=== PATIENT | female | born 1990 | race African-American/Black ===

== ENCOUNTER 2017-06-03 12:53 | Emergency (ER) | payer OTHER ==
[~2017-06-03] VITALS: Ht 167.6 cm; Wt 82.5 kg
[2017-06-03 13:06] VITALS: TEMP 37.2
[2017-06-03] MEDS ORDERED: ALBUTEROL 0.083% NEBU SOLN 3 ML VIAL INH STA ×2 (13:50→14:49)
--- NOTE | 2017-06-03 13:56 | EMERGENCY ROOM VISIT NOTE ---
History Report prepared by Thomas[place]ag[place]ia: Michele Payne Under the Supervision of: Dr. Brian Linares M.D. First contact with patient: 13:29 Chief Complaint: CONGESTION Stated Complaint: SEVERE CONGESTION AND COUGH; LOSS OF VOICE Nursing Triage Summary: c/o cold and productive cough with copious amounts of green mucus. skin pwd resp even unlabored. hoarse voice noted. denies nvd or fever. reports headache related to "sinuses". History of Present Illness The patient is a 27 year old female who presents to the Emergency Room with complaints of a persistent cough that began three days ago. She rates her discomfort as a 5/10 in severity. The patient states that her cough has been productive with green mucous. She reports her cough has been accompanied by congestion, a sore throat, and a headache. The patient denies fever, chest pain , and taking medications. She states she is unsure if she is since she is supposed to be starting her menstrual period soon. Source of History: patient Onset: three days ago Position: other (global) Symptom Intensity: 5/10 Quality: other (productive with green mucous) Timing: other (persistent) Associated Symptoms: + sorethroat, + cough, No fevers, No chest pain Review of Systems See HPI for pertinent positives & negatives. A total of 10 systems reviewed and were otherwise negative. Past Medical & Surgical Surgical Problems: (1) No pertinent past surgical history Family History Patient reports no known family medical history. Social History Smoking Status: Never Smoker Marital Status: single Housing Status: lives with family Occupation Status: employed Current/Historical Medications Scheduled Prednisone (Prednisone Tab), 0 PO DAILY Allergies Coded Allergies: No Known Allergies (Unverified , 06/03/17) Physical Exam Vital Signs Date Time Temp Pulse Resp B/P (MAP) Pulse Ox O2 Delivery O2 Flow Rate FiO2 06/03/17 16:07 113 17 114/68 99 06/03/17 15:59 113 17 114/68 99 Room Air 06/03/17 15:20 104/68 06/03/17 14:43 75 18 99 Room Air 06/03/17 14:17 98 Room Air 06/03/17 14:17 Room Air 06/03/17 13:28 98 16 125/60 98 Room Air 06/03/17 13:28 Room Air 06/03/17 13:06 37.2 76 18 99 Room Air Physical Exam GENERAL: Awake, alert, well-appearing, in no acute distress HENT: Normocephalic, atraumatic. Oropharynx unremarkable. EYES: Normal conjunctiva. Sclera non-icteric. NECK: Supple. No nuchal rigidity. FROM. No JVD. No stridor. RESPIRATORY: Expiratory wheezes at the bases. CARDIAC: Regular rate, normal rhythm. Extremities warm and well perfused. Pulses equal. ABDOMEN: Soft, non-distended. No tenderness to palpation. No rebound or guarding. No masses. RECTAL: Deferred. MUSCULOSKELETAL: Chest examination reveals no tenderness. The back is symmetrical on inspection without obvious abnormality. There is no CVA tenderness to palpation. No joint edema. LOWER EXTREMITIES: Calves are equal size bilaterally and non-tender. No edema. No discoloration. NEURO: Normal sensorium. No sensory or motor deficits noted. SKIN: No rash or jaundice noted. Medical Decision & Procedures ER Provider Diagnostic Interpretation: X-ray results as stated below per interpretation by me and the radiologist: CHEST ONE VIEW PORTABLE CLINICAL HISTORY: 27 years-old Female presenting with Pt c/o wheezing. TECHNIQUE: PA and lateral views of the chest were obtained. COMPARISON: 02/15/2016. FINDINGS: Cardiomediastinal silhouette normal. Lungs and pleural spaces clear. Osseous structures normal. Upper abdomen normal. IMPRESSION: 1. No acute cardiopulmonary disease. Electronically signed by: Grey Moreno M.D. 06/03/2017 2:48 PM Dictated Date/Time: 06/03/2017 2:48 PM Laboratory Results 06/03/17 14:00 Red Blood Count 4.22, Mean Corpuscular Volume 80.6, Mean Corpuscular Hemoglobin 26.3, Mean Corpuscular Hemoglobin Concent 32.6, Mean Platelet Volume 9.4, Neutrophils (%) (Auto) 72.6, Lymphocytes (%) (Auto) 14.9, Monocytes (%) (Auto) 10.7, Eosinophils (%) (Auto) 1.0, Basophils (%) (Auto) 0.5, Neutrophils # (Auto ) 7.63, Lymphocytes # (Auto) 1.57, Monocytes # (Auto) 1.13, Eosinophils # (Auto ) 0.11, Basophils # (Auto) 0.05 06/03/17 14:00 Test 06/03/17 00:00 06/03/17 14:00 Urine Color DK YELLOW Urine Appearance CLEAR (CLEAR) Urine pH 6.0 (4.5-7.5) Urine Specific Parker 1.030 (1.000-1.030) Urine Protein NEG (NEG) Urine Glucose (UA) NEG (NEG) Urine Ketones NEG (NEG) Urine Occult Blood 3+ (NEG) Urine Nitrite NEG (NEG) Urine Bilirubin NEG (NEG) Urine Urobilinogen NEG (NEG) Urine Leukocyte Esterase NEG (NEG) Urine WBC (Auto) 1-5 /hpf (0-5) Urine RBC (Auto) 0-4 /hpf (0-4) Urine Hyaline Casts (Auto) 1-5 /lpf (0-5) Urine Epithelial Cells (Auto) >30 /lpf (0-5) Urine Bacteria (Auto) NEG (NEG) White Blood Count 10.52 K/uL (4.8-10.8) Red Blood Count 4.22 M/uL (4.2-5.4) Hemoglobin 11.1 g/dL (12.0-16.0) Hematocrit 34.0 % (37-47) Mean Corpuscular Volume 80.6 fL (80-100) Mean Corpuscular Hemoglobin 26.3 pg (25-34) Mean Corpuscular Hemoglobin Concent 32.6 g/dl (32-36) Platelet Count 214 K/uL (130-400) Mean Platelet Volume 9.4 fL (7.4-10.4) Neutrophils (%) (Auto) 72.6 % Lymphocytes (%) (Auto) 14.9 % Monocytes (%) (Auto) 10.7 % Eosinophils (%) (Auto) 1.0 % Basophils (%) (Auto) 0.5 % Neutrophils # (Auto) 7.63 K/uL (1.4-6.5) Lymphocytes # (Auto) 1.57 K/uL (1.2-3.4) Monocytes # (Auto) 1.13 K/uL (0.11-0.59) Eosinophils # (Auto) 0.11 K/uL (0-0.5) Basophils # (Auto) 0.05 K/uL (0-0.2) RDW Standard Deviation 45.2 fL (36.4-46.3) RDW Coefficient of Variation 15.4 % (11.5-14.5) Immature Granulocyte % (Auto) 0.3 % Immature Granulocyte # (Auto) 0.03 K/uL (0.00-0.02) Anion Gap 4.0 mmol/L (3-11) Est Creatinine Clear Calc Drug Dose 107.6 ml/min Estimated GFR () 108.8 Estimated GFR (Non- 93.9 BUN/Creatinine Ratio 10.3 (10-20) Calcium Level 8.7 mg/dl (8.5-10.1) Total Bilirubin 0.5 mg/dl (0.2-1) Aspartate Amino Transf (AST/SGOT) 18 U/L (15-37) Alanine Aminotransferase (ALT/SGPT) 20 U/L (12-78) Alkaline Phosphatase 89 U/L (45-117) Total Protein 7.5 gm/dl (6.4-8.2) Albumin 3.3 gm/dl (3.4-5.0) Globulin 4.2 gm/dl (2.5-4.0) Albumin/Globulin Ratio 0.8 (0.9-2) Human Chorionic Gonadotropin, Qual NEG (NEG) Labs reviewed by ED physician. Medications Administered Medications (Trade) Dose Ordered Sig/Willam Route Start Time Stop Time Status Last Admin Dose Admin Albuterol (Ventolin Hfa Inhaler) 2 puffs NOW ONCE INH 06/03/17 14:00 06/03/17 14:01 DC 06/03/17 15:15 2 PUFFS Albuterol Sulfate (Ventolin 0.083% 2.5MG/3ML Neb) 2.5 mg NOW STAT INH 06/03/17 13:50 06/03/17 13:53 DC 06/03/17 15:15 2.5 MG Albuterol Sulfate (Ventolin 0.083% 2.5MG/3ML Neb) 2.5 mg NOW STAT INH 06/03/17 14:49 06/03/17 14:51 DC 06/03/17 15:27 2.5 MG Ketorolac Tromethamine (Toradol Inj) 30 mg NOW STAT IV 06/03/17 14:49 06/03/17 14:51 DC 06/03/17 15:15 30 MG Methylprednisolone Sodium Succinate (Solu-Medrol IV) 60 mg NOW STAT IV 06/03/17 15:48 06/03/17 15:49 DC 06/03/17 16:03 60 MG ECG Per My Interpretation Indication: SOB/dyspnea Rate (beats per minute): 71 Rhythm: normal sinus Findings: other (No ST elevation or depression) ED Course 1344: Past medical records reviewed. The patient was evaluated in room B10. A complete history and physical examination was performed. 1350: Ordered Albuterol Sulfate 2.5 mg INH. 1400: Ordered Albuterol 2 puffs INH. 1449: Ordered Toradol Injection 30 mg IV, Albuterol Sulfate 2.5 mg INH. 1548: Ordered Solu-Medrol 60 mg IV. 1550: Upon reexamination the patient is doing well. I discussed results and treatment plan with the patient. She verbalizes agreement and understanding. The patient is ready for discharge. Medical Decision Prior records/ancillary studies reviewed. Triage Nursing notes reviewed. The patient's history was concerning for respiratory difficulties. Differential diagnosis: Etiologies such as infections, reactive airway disease, pneumonia, pneumothorax , COPD, CHF, cardiac ischemia, pulmonary embolism, musculoskeletal, gastrointestinal, as well as others were entertained. This is a 27-year-old female who presents emergency department complaining of sore throat and wheezing. The patient has no stridor on examination. She was given a breathing treatment here in the emergency department and started on steroids. Repeat examination revealed much improvement the patient's symptoms. I do feel that the patient is well enough to be discharged home for follow-up with primary care physician. Patient is in agreement with the treatment plan. Medication Reconcilliation Current Medication List: was personally reviewed by me Blood Pressure Screening Patient's blood pressure: Normal blood pressure Impression Primary Impression: Bronchitis Scribe Attestation The scribe's documentation has been prepared under my direction and personally reviewed by me in its entirety. I confirm that the note above accurately reflects all work, treatment, procedures, and medical decision making performed by me. Departure Information Dispostion Home / Self-Care Prescriptions Prednisone (Prednisone Tab) 20 Mg Tab 0 PO DAILY, #7 TAB 2 TABS DAILY FOR 2 DAYS, THEN 1 TAB DAILY FOR 2 DAYS, THEN 1/2 TAB DAILY FOR 2 DAYS. Prov: Brian Linares MD 06/03/17 Referrals No Doctor, Assigned (PCP) Forms HOME CARE DOCUMENTATION FORM, IMPORTANT VISIT INFORMATION Patient Instructions Bronchitis Acute Dc, My [facility] Additional Instructions Use inhaler twice every 6 hours You have been examined and treated today on an emergency basis only. This is not a substitute for, or an effort to provide, complete comprehensive medical care. It is impossible to recognize and treat all injuries or illnesses in a single emergency department visit. It is therefore important that you follow up closely with your PCP. Call as soon as possible for an appointment. Thank you for your time and consideration. I look forward to speaking with you again soon. Please don't hesitate to call us if you have any questions.
[2017-06-03] MEDS ORDERED: ALBUTEROL HFA 8 GM INHALER INH ONE (14:00)
[2017-06-03 14:15] LABS: BASO % 0.5 %; BASO ABS # 0.05 K/uL (0-0.2); EOS ABS # 0.11 K/uL (0-0.5); HEMOGLOBIN 11.1 g/dL (12.0-16.0); IG# 0.03 K/uL (0.00-0.02); LYMPH % 14.9 %; LYMPH ABS # 1.57 K/uL (1.2-3.4); MEAN CELL VOLUME 80.6 fL (80-100); MEAN CORPUSCULAR HEMOGLOBIN 26.3 pg (25-34); MEAN CORPUSCULAR HGB CONC 32.6 g/dl (32-36); MEAN PLATELET VOLUME 9.4 fL (7.4-10.4); MONO % 10.7 %; MONO ABS # 1.13 K/uL (0.11-0.59); NEUT % 72.6 %; NEUT ABS # 7.63 K/uL (1.4-6.5); PLATELET COUNT 214 K/uL (130-400); RED CELL DISTRIBUTION WIDTH CV 15.4 % (11.5-14.5); RED CELL DISTRIBUTION WIDTH SD 45.2 fL (36.4-46.3); WHITE BLOOD COUNT 10.52 K/uL (4.8-10.8)
[2017-06-03 14:17] VITALS: O2SAT 98
[2017-06-03 14:19] VITALS: Ht 167.6 cm; Wt 82.5 kg
[2017-06-03 14:34] LABS: ALBUMIN 3.3 gm/dl (3.4-5.0); CALCIUM 8.7 mg/dl (8.5-10.1); CREATININE 0.85 mg/dl (0.60-1.20); POTASSIUM 3.5 mmol/L (3.5-5.1)
[2017-06-03 14:36] LABS: TOTAL PROTEIN 7.5 gm/dl (6.4-8.2)
[2017-06-03] MEDS ORDERED: KETOROLAC TROMETHAMINE 30 MG/ML VIAL IV STA (14:49)
--- NOTE | 2017-06-03 14:50 | DIAGNOSTIC IMAGING REPORT ---
CHEST ONE VIEW PORTABLE CLINICAL HISTORY: 27 years-old Female presenting with Pt c/o wheezing. TECHNIQUE: PA and lateral views of the chest were obtained. COMPARISON: 02/15/2016. FINDINGS: Cardiomediastinal silhouette normal. Lungs and pleural spaces clear. Osseous structures normal. Upper abdomen normal. IMPRESSION: 1. No acute cardiopulmonary disease. Electronically signed by: Grey Moreno M.D. 06/03/2017 2:48 PM Dictated Date/Time: 06/03/2017 2:48 PM
[2017-06-03] MEDS ORDERED: METHYLPREDNISOLONE 125 MG VIAL IV STA (15:48)
[2017-06-03] MEDS ORDERED: PRED20TA2 PO (15:51)
[2017-06-03 16:07] VITALS: BP 114/68; PULSE 113; O2SAT 99
== END 2017-06-03 16:07 | disposition home or self-care (01) ==
LOC: C.EDB 12:55
DX: J40 Bronchitis, not specified as acute or chronic (principal)

== ENCOUNTER 2020-10-19 07:27 | Inpatient (IN) ==
[2020-10-19] MEDS ORDERED: miSOPROStoL 50 MCG TAB PO ONE (09:14)
[2020-10-19] MEDS ORDERED: OXYTOCIN 30 UNITS/500 ML BAG IV PRN (09:14)
[2020-10-19 10:12] LABS: Hematocrit (blood only) 33.6 % (37-47); Hemoglobin 10.5 g/dL (12.0-16.0); Mean Corpuscular Hemoglobin 26.1 pg (25-34); Mean Corpuscular Hgb Conc 31.3 g/dL (32-36); Mean Corpuscular Volume 83.4 fL (80-100); Mean Platelet Volume 9.9 fL (7.4-10.4); Platelet Count 224 K/uL (130-400); RDW Coefficient of Variation 15.8 % (11.5-14.5); RDW Standard Deviation 48.2 fL (36.4-46.3); Red Blood Count 4.03 M/uL (4.2-5.4); White Blood Count 10.29 K/uL (4.8-10.8)
--- NOTE | 2020-10-19 10:21 | Progress Note ---
Date of Service October 19, 2020 Assessment & Plan Admission and Anticipated Discharge Date Admission Date: October 19, 2020 Subjective Induction for IUGR Met pt and reviewed PNC Reviewed strip with pt. there has been 2 deep variables since admission.. One looks more lik a late decel discussed possible c/sec if late recur we will however start the induction and hope for the best Bedside sono; VT VE; ft/thick/post Plan NPO cervidil Pt and spouse agree with plan Results & Data ([facility]) Vital Signs (Past 12 Hours) Vital Signs Temp Pulse Resp BP Pulse Ox 10/19/20 10:16 79 100 10/19/20 10:11 78 99 10/19/20 10:06 80 100 10/19/20 10:01 73 100 10/19/20 09:56 77 98 10/19/20 09:51 68 99 10/19/20 09:46 86 99 10/19/20 09:41 83 100 10/19/20 09:36 84 100 10/19/20 09:31 86 99 10/19/20 09:26 74 99 10/19/20 09:21 84 99 10/19/20 07:58 37.0 C 18 10/19/20 07:37 81 139/84
[2020-10-19] MEDS ORDERED: DINOPROSTONE 10 MG INSERT PV ONE ×2 (10:35→23:48)
--- NOTE | 2020-10-19 11:00 | Progress Note ---
Date of Service October 19, 2020 Assessment & Plan Admission and Anticipated Discharge Date Admission Date: October 19, 2020 Subjective Cervidil placed in vagina Results & Data ([facility]) Vital Signs (Past 12 Hours) Vital Signs Temp Pulse Resp BP Pulse Ox 10/19/20 10:46 75 100 10/19/20 10:41 68 98 10/19/20 10:36 74 99 10/19/20 10:31 66 98 10/19/20 10:26 69 98 10/19/20 10:21 69 138/72 99 10/19/20 10:16 79 100 10/19/20 10:11 78 99 10/19/20 10:06 80 100 10/19/20 10:01 73 100 10/19/20 09:56 77 98 10/19/20 09:51 68 99 10/19/20 09:46 86 99 10/19/20 09:41 83 100 10/19/20 09:36 84 100 10/19/20 09:31 86 99 10/19/20 09:26 74 99 10/19/20 09:21 84 99 10/19/20 07:58 37.0 C 18 10/19/20 07:37 81 139/84
[2020-10-19] MEDS ORDERED: BUTORPHANOL TARTRATE 1 MG/ML VIAL IV PRN (19:48)
[2020-10-19] MEDS ORDERED: BUTORPHANOL TARTRATE 1 MG/ML VIAL ONE (20:02)
[2020-10-19] MEDS: LACTATED RINGER'S 1,000 ML IV PRN ×2 (20:33→22:00)
[2020-10-19] MEDS ORDERED: BUPIVACAINE 0.25% 30 ML VIAL ONE (20:50)
[2020-10-19] MEDS ORDERED: ePHEDrine sulfate 50 MG/ML AMP ONE (20:50)
[2020-10-19] MEDS ORDERED: fentaNYL citrate 100 MCG/2 ML VIAL ONE (20:50)
[2020-10-19] MEDS ORDERED: SODIUM CHLORIDE 0.9% INJ 10 ML VIAL ONE (20:50)
[2020-10-19] MEDS ORDERED: fentaNYL 2MCG/ML ROPIVACAINE 1.25MG/ML 100 ML BAG EPI ONE (20:51)
[2020-10-19] MEDS ORDERED: ONDANSETRON INJ 2 MG/ML 2 ML VIAL IV PRN (21:16)
[2020-10-19] MEDS ORDERED: diphenhydrAMINE 50 MG/ML VIAL IV PRN (21:16)
[2020-10-19] MEDS ORDERED: ePHEDrine sulfate 50 MG/ML AMP IV PRN (21:16)
[2020-10-19] MEDS ORDERED: NALOXONE HCL 1 MG in SODIUM CHLORIDE 0.9% 1000ML 1,000 ML IV PRN (21:16)
[2020-10-19] MEDS ORDERED: NALOXONE HCL 0.4 MG/1 ML VIAL/CARP IV PRN (21:16)
[2020-10-19] MEDS ORDERED: NALBUPHINE HCL INJ 10 MG/ML AMP IV PRN (21:16)
--- NOTE | 2020-10-19 21:20 | Anesthesiology Consultation ---
Date of Service October 19, 2020 Assessment & Plan Chart Review Chart Review: Patient NOT seen in Pre Admission Testing and Acceptable Risk for Labor Epidural Consults Requested none ASA ASA3 Proposed Anesthesia Anesthesia Type: Labor Epidural and CSE Risk / Benefits Reviewed With: PT / POA / Parent / Guardian, Accepts Plan and Informed Consent Obtained History Height/Weight Height: 5 ft 1 in Weight: 111.13 kg Allergies Allergy/AdvReac Type Severity Reaction Status Date / Time No Known Allergies Allergy Verified 10/19/20 07:52 Medications Home Medications Medication Instructions Recorded Confirmed Last Taken ferrous sulfate 325 mg (65 mg 325 mg PO DAILY 10/19/20 10/19/20 10/17/20 iron) tablet vit no.133-ferrous 1 tab PO DAILY 10/19/20 10/19/20 10/17/20 fumarate 28 mg-folic acid 800 mcg tablet () Active Medications Generic Name Dose Route Start Last Admin Trade Name Freq PRN Reason Stop Dose Admin Butorphanol Tartrate 1 mg 10/19/20 19:48 10/19/20 20:03 Butorphanol Tartrate 1 Mg/Ml Vial IV 11/18/20 19:47 1 mg Q3HWA PRN Administration Pain Lactated Ringer's 1,000 mls @ 125 mls/hr 10/19/20 09:14 10/19/20 20:33 Lr IV 10/21/20 09:13 999 mls/hr .Q8H PRN Administration L&D Protocol Protocol NPO Date Last Intake of Fluids: 10/19/20 Time Last Intake of Fluids: 20:00 Date Last Intake of Solids: 10/19/20 Time Last Intake of Solids: 06:00 Past Medical History Medical History (Updated 10/19/20 @ 21:20 by Brennen Tena MD) Anxiety and depression Obesity Polycystic disease, ovaries Exercise / Class Metabolic Activity II 4-5 Yardwork/Stairs/Walk up hill Past Family History Family History Other Diabetes Past Surgical History Surgical History No pertinent past surgical history Past Anesthesia History No Hx of Anesthesia Complications and No Family Hx of Anesthesia Complications History of PONV No Hx of PONV and No Hx of Motion Sickness Social History Smoking Status: Never smoker Hx Alcohol Use: No substance use type: marijuana Last Used Substance Other:: "a few months ago" Review of Systems no chest pain or sob Physical Exam Vital Signs Last Vital Signs Temp 36.8 C 10/19/20 19:00 Pulse 62 10/19/20 21:16 Resp 16 10/19/20 19:00 BP 135/70 10/19/20 19:13 Pulse Ox 99 10/19/20 21:16 ENMT Mouth: no TMJ abnormality Thyromental Distance: > or= 3.5 Finger Breadths Mallampati Class: II Neck normal visual inspection Respiratory normal respiratory effort Auscultation: lungs clear to auscultation bilaterally Cardiovascular Rate/Rhythm: regular rate and regular rhythm Musculoskeletal Spine: normal cervical ROM Neurologic moves all extremities Psychiatric Orientation: alert and oriented x 3 Testing Laboratory Results 10/19/20 09:59
--- NOTE | 2020-10-20 00:05 | Progress Note ---
Date of Service October 20, 2020 Assessment & Plan Admission and Anticipated Discharge Date Admission Date: October 19, 2020 Subjective Pt doing well Induction for IUGR Epidural analgesia in place FHR; CAT1 Ctx 5-6mins VE 2/50/-2 2nd Cervidil placed Results & Data ([facility]) Vital Signs (Past 12 Hours) Vital Signs Temp Pulse Resp BP Pulse Ox 10/20/20 00:01 73 100 10/19/20 23:56 69 99 10/19/20 23:52 71 122/59 L 10/19/20 23:51 64 99 10/19/20 23:46 65 99 10/19/20 23:41 67 100 10/19/20 23:36 66 124/58 L 99 10/19/20 23:31 65 100 10/19/20 23:30 20 10/19/20 23:26 71 100 10/19/20 23:22 62 110/59 L 10/19/20 23:21 62 97 10/19/20 23:16 74 99 10/19/20 23:11 69 99 10/19/20 23:06 63 115/62 98 10/19/20 23:01 67 100 10/19/20 23:00 18 10/19/20 22:56 70 100 10/19/20 22:51 70 114/68 99 10/19/20 22:46 85 99 10/19/20 22:41 71 98 10/19/20 22:37 67 115/64 10/19/20 22:36 64 99 10/19/20 22:31 71 100 10/19/20 22:29 75 93 10/19/20 22:26 36.6 C 63 16 100 10/19/20 22:21 73 97 10/19/20 22:18 83 108/60 10/19/20 22:16 84 99 10/19/20 22:13 75 112/52 L 10/19/20 22:11 79 99 10/19/20 22:08 80 105/55 L 10/19/20 22:06 72 98 10/19/20 22:03 72 109/57 L 10/19/20 22:01 84 99 10/19/20 22:00 16 10/19/20 21:58 73 109/53 L 10/19/20 21:56 76 100 10/19/20 21:51 76 112/59 L 100 10/19/20 21:49 65 105/56 L 10/19/20 21:47 79 119/59 L 10/19/20 21:46 88 100 10/19/20 21:45 79 115/65 10/19/20 21:44 71 119/66 10/19/20 21:41 68 100 10/19/20 21:36 75 98 10/19/20 21:31 67 90 10/19/20 21:26 71 100 10/19/20 21:25 90 91 10/19/20 21:21 75 100 10/19/20 21:16 62 99 10/19/20 21:11 80 98 10/19/20 21:06 69 99 10/19/20 21:01 77 100 10/19/20 20:56 63 98 10/19/20 20:51 76 97 10/19/20 20:46 64 98 10/19/20 20:41 64 98 10/19/20 20:36 68 98 10/19/20 20:31 66 99 10/19/20 19:13 71 135/70 10/19/20 19:00 36.8 C 16 10/19/20 14:38 36.9 C 18 10/19/20 14:37 63 134/78 10/19/20 13:43 72 100 10/19/20 13:38 75 99 10/19/20 13:33 74 100 10/19/20 13:28 71 99 10/19/20 13:23 67 100 10/19/20 13:18 76 99 10/19/20 13:13 78 99 10/19/20 13:08 72 99 10/19/20 13:03 85 100 10/19/20 12:58 66 99 10/19/20 12:53 85 99 10/19/20 12:48 81 99 10/19/20 12:43 78 100 10/19/20 12:38 70 100 10/19/20 12:33 71 98 10/19/20 12:28 75 98 10/19/20 12:23 69 98 10/19/20 12:18 70 97 10/19/20 12:13 71 98 10/19/20 12:08 79 97
[2020-10-20] MEDS: LACTATED RINGER'S 1,000 ML IV PRN (00:33)
[2020-10-20] MEDS: fentaNYL 2MCG/ML ROPIVACAINE 1.25MG/ML 100 ML BAG EPI PRN ×2 (04:02→04:38)
[2020-10-20] MEDS ORDERED: fentaNYL citrate 100 MCG/2 ML VIAL ONE (05:22)
[2020-10-20] MEDS ORDERED: LIDOCAINE 2%/EPINEPHRINE 1:200,000 20 ML SDV ONE (05:22)
[2020-10-20] MEDS ORDERED: CITRIC ACID/SODIUM CITRATE 15 ML UDC PO SCH (06:00)
[2020-10-20] MEDS ORDERED: ceFAZolin 2000MG 2,000 MG/15 ML SYR IV SCH (06:00)
[2020-10-20] MEDS ORDERED: LIDOCAINE 2% 20 MG/ML 5 ML SYR IV ONE (06:04)
[2020-10-20] MEDS ORDERED: OXYTOCIN 10 UNITS/ML VIAL ONE ×3 (06:04→06:35)
[2020-10-20] MEDS ORDERED: MoRPHine SULFATE PF 1 MG/ML 10 ML AMP/VIAL ONE (06:11)
[2020-10-20] MEDS ORDERED: ONDANSETRON INJ 2 MG/ML 2 ML VIAL ONE (06:36)
[2020-10-20] MEDS ORDERED: KETAMINE 50 MG/5 ML SYRINGE ONE (06:45)
[2020-10-20] MEDS ORDERED: miSOPROStoL 200 MCG TAB ONE (07:12)
[2020-10-20] MEDS ORDERED: KETOROLAC 30 MG/ML VIAL ONE (07:35)
[2020-10-20] MEDS ORDERED: NALOXONE HCL 0.08 MG in SYRINGE 1.8 ML IV PRN (07:38)
[2020-10-20] MEDS ORDERED: LACTATED RINGER'S 500 ML IV PRN (07:38)
[2020-10-20] MEDS ORDERED: MoRPHine SULFATE PF 1 MG/ML 10 ML AMP/VIAL INT SPINAL ONE (07:38)
[2020-10-20] MEDS ORDERED: ePHEDrine sulfate 50 MG/ML AMP IV PRN (07:38)
[2020-10-20] MEDS ORDERED: diphenhydrAMINE 50 MG/ML VIAL IV PRN (07:38)
[2020-10-20] MEDS ORDERED: NALBUPHINE HCL INJ 10 MG/ML AMP IV PRN (07:38)
[2020-10-20] MEDS ORDERED: NALOXONE HCL 0.4 MG/1 ML VIAL/CARP IV PRN (07:38)
[2020-10-20] MEDS ORDERED: KETOROLAC 30 MG/ML VIAL IV PRN (07:38)
[2020-10-20] MEDS ORDERED: ONDANSETRON INJ 2 MG/ML 2 ML VIAL IV PRN (07:38)
[2020-10-20] MEDS ORDERED: NALOXONE HCL 1 MG in SODIUM CHLORIDE 0.9% 1000ML 1,000 ML IV PRN (07:38)
[2020-10-20] MEDS ORDERED: BENZOCAINE 20% AER SPR 82.5 GM CAN EXT PRN (07:39)
[2020-10-20] MEDS ORDERED: SENNA 8.6 MG TAB PO PRN (07:39)
[2020-10-20] MEDS ORDERED: MAGNESIUM HYDROXIDE SUSP 30 ML UDC PO PRN (07:39)
[2020-10-20] MEDS ORDERED: SUPERCREAM 0.870% 15 GM JAR EXT PRN (07:39)
[2020-10-20] MEDS ORDERED: DIPHTHERIA/TETANUS/PERTUSSIS 0.5 ML SYR/VIAL IM ONE (07:39)
[2020-10-20] MEDS ORDERED: HYDROCORTISONE ACETATE 25 MG SUPP PR PRN (07:39)
--- NOTE | 2020-10-20 07:39 | Post Operative Brief Note ---
Immediate Post Op Note v1 Date of Surgery October 20, 2020 Pre & Post Diagnosis Operation Date: 10/20/20 05:20 Pre-Op Diagnosis: Hand Presentation and IUGR Post-Op Diagnosis: Hand Presentation and IUGR I identified the patient and participated in the time-out.: Yes Procedure Operation Date: 10/20/20 05:20 Actual Procedures p Section in LD live female child born at 0628(Bilateral) - Trent Arce MD Surgeon Trent Arce MD Maintenance Shop Technician Tatiana Moise Estimated Blood Loss 600 Findings Consistent with Post-Op Diagnosis Drains Kowalski Catheter (draining clear and yellow throught case)
[2020-10-20] MEDS ORDERED: LACTATED RINGER'S 1,000 ML IV SCH (07:45)
[2020-10-20] MEDS ORDERED: SODIUM CHLORIDE 0.9% 1000ML 1,000 ML IV SCH (07:45)
[2020-10-20] MEDS ORDERED: NO NARCOTICS OR SEDATIVES SCH (07:45)
[2020-10-20] MEDS ORDERED: OXYTOCIN 10 UNITS/ML VIAL IM ONE (07:53)
--- NOTE | 2020-10-20 07:59 | Anesthesia Procedure Note ---
Date of Service October 20, 2020 Anesthesia Post Epidural Note Vital Signs Vital Signs: Temp Pulse Resp BP Pulse Ox 98.1 F 80 16 126/60 99 10/20/20 03:24 10/20/20 07:55 10/20/20 04:30 10/20/20 07:46 10/20/20 07:55 Pain Intensity Bilateral Abdomen: Pain Intensity: 8 Notes Mental Status: alert / awake / arousable and participated in evaluation Nausea / Vomiting: adequately controlled Pain: adequately controlled Airway Patency, RR, SpO2: stable & adequate BP & HR: stable & adequate Hydration State: stable & adequate Neuraxial Anesthesia: was administered and sensory block is resolving Anesthetic Complications: no major complications apparent and Pt Satisfied with anesthetic care Epidural: Removed without complications and With tip intact
--- NOTE | 2020-10-20 08:00 | Anesthesiology Progress Note ---
Date of Service October 20, 2020 Anesthesia Post Procedure Vital Signs Vital Signs: Temp Pulse Resp BP Pulse Ox 10/20/20 07:55 80 99 10/20/20 07:50 87 98 10/20/20 07:46 78 126/60 10/20/20 07:45 80 100 10/20/20 07:40 94 H 99 10/20/20 07:36 79 110/56 L 10/20/20 07:35 77 96 10/20/20 05:52 69 136/63 100 10/20/20 05:47 89 98 10/20/20 05:42 78 100 10/20/20 05:37 70 136/63 100 10/20/20 05:32 88 98 10/20/20 05:27 81 100 10/20/20 05:22 73 124/58 L 99 10/20/20 05:17 77 98 10/20/20 05:12 70 100 10/20/20 05:08 73 126/87 10/20/20 05:07 71 100 10/20/20 05:02 79 99 10/20/20 04:57 91 H 98 10/20/20 04:52 70 125/79 100 10/20/20 04:47 69 99 10/20/20 04:42 62 99 10/20/20 04:37 71 99 10/20/20 04:36 68 115/69 10/20/20 04:32 73 98 10/20/20 04:30 16 10/20/20 04:27 79 98 10/20/20 04:22 74 100/70 98 10/20/20 04:17 72 97 10/20/20 04:12 74 97 10/20/20 04:07 63 98 10/20/20 04:06 76 142/69 H 10/20/20 04:02 65 98 10/20/20 04:00 20 10/20/20 03:57 72 97 10/20/20 03:56 70 129/58 L 10/20/20 03:52 71 98 10/20/20 03:47 72 98 10/20/20 03:42 73 98 10/20/20 03:37 76 108/62 97 10/20/20 03:32 68 98 10/20/20 03:27 68 99 10/20/20 03:24 98.1 F 16 10/20/20 03:22 69 100 10/20/20 03:21 83 126/58 L 10/20/20 03:17 77 99 10/20/20 03:12 66 99 10/20/20 03:09 75 126/64 10/20/20 03:07 87 97 10/20/20 03:02 97 H 97 10/20/20 02:57 62 99 10/20/20 02:52 76 127/67 98 10/20/20 02:47 68 97 10/20/20 02:42 73 100 10/20/20 02:37 81 99 10/20/20 02:36 74 126/75 10/20/20 02:32 68 98 10/20/20 02:30 20 10/20/20 02:27 71 99 10/20/20 02:22 71 121/74 98 10/20/20 02:17 69 97 10/20/20 02:12 73 98 10/20/20 02:07 69 123/64 98 10/20/20 02:02 78 98 10/20/20 02:00 16 10/20/20 01:57 70 98 10/20/20 01:52 66 97 10/20/20 01:51 67 132/65 10/20/20 01:47 67 98 10/20/20 01:42 67 98 10/20/20 01:38 68 125/65 10/20/20 01:37 63 96 10/20/20 01:32 65 99 10/20/20 01:30 18 10/20/20 01:27 66 98 10/20/20 01:22 69 98 10/20/20 01:21 68 123/65 10/20/20 01:17 74 98 10/20/20 01:12 73 98 10/20/20 01:07 66 126/62 99 10/20/20 01:02 71 99 10/20/20 00:57 68 100 10/20/20 00:53 75 118/66 10/20/20 00:52 75 99 10/20/20 00:47 67 99 10/20/20 00:42 68 98 10/20/20 00:37 68 121/59 L 98 10/20/20 00:32 72 99 10/20/20 00:30 20 10/20/20 00:27 72 99 10/20/20 00:22 70 119/61 99 10/20/20 00:17 77 100 10/20/20 00:12 76 99 10/20/20 00:07 85 131/87 99 10/20/20 00:01 73 100 10/20/20 00:00 20 10/19/20 23:56 69 99 10/19/20 23:52 71 122/59 L 10/19/20 23:51 64 99 10/19/20 23:46 65 99 10/19/20 23:41 67 100 10/19/20 23:36 66 124/58 L 99 10/19/20 23:31 65 100 10/19/20 23:30 20 10/19/20 23:26 71 100 10/19/20 23:22 62 110/59 L 10/19/20 23:21 62 97 10/19/20 23:16 74 99 10/19/20 23:11 69 99 10/19/20 23:06 63 115/62 98 10/19/20 23:01 67 100 10/19/20 23:00 18 10/19/20 22:56 70 100 10/19/20 22:51 70 114/68 99 10/19/20 22:46 85 99 10/19/20 22:41 71 98 10/19/20 22:37 67 115/64 10/19/20 22:36 64 99 10/19/20 22:31 71 100 10/19/20 22:29 75 93 10/19/20 22:26 97.9 F 63 16 100 10/19/20 22:21 73 97 10/19/20 22:18 83 108/60 10/19/20 22:16 84 99 10/19/20 22:13 75 112/52 L 10/19/20 22:11 79 99 10/19/20 22:08 80 105/55 L 10/19/20 22:06 72 98 10/19/20 22:03 72 109/57 L 10/19/20 22:01 84 99 10/19/20 22:00 16 10/19/20 21:58 73 109/53 L 10/19/20 21:56 76 100 10/19/20 21:51 76 112/59 L 100 10/19/20 21:49 65 105/56 L 10/19/20 21:47 79 119/59 L 10/19/20 21:46 88 100 10/19/20 21:45 79 115/65 10/19/20 21:44 71 119/66 10/19/20 21:41 68 100 10/19/20 21:36 75 98 10/19/20 21:31 67 90 10/19/20 21:26 71 100 10/19/20 21:25 90 91 10/19/20 21:21 75 100 10/19/20 21:16 62 99 10/19/20 21:11 80 98 10/19/20 21:06 69 99 10/19/20 21:01 77 100 10/19/20 20:56 63 98 10/19/20 20:51 76 97 10/19/20 20:46 64 98 10/19/20 20:41 64 98 10/19/20 20:36 68 98 10/19/20 20:31 66 99 10/19/20 19:13 71 135/70 10/19/20 19:00 98.2 F 16 10/19/20 14:38 98.4 F 18 10/19/20 14:37 63 134/78 10/19/20 13:43 72 100 10/19/20 13:38 75 99 10/19/20 13:33 74 100 10/19/20 13:28 71 99 10/19/20 13:23 67 100 10/19/20 13:18 76 99 10/19/20 13:13 78 99 10/19/20 13:08 72 99 10/19/20 13:03 85 100 10/19/20 12:58 66 99 10/19/20 12:53 85 99 10/19/20 12:48 81 99 10/19/20 12:43 78 100 10/19/20 12:38 70 100 10/19/20 12:33 71 98 10/19/20 12:28 75 98 10/19/20 12:23 69 98 10/19/20 12:18 70 97 10/19/20 12:13 71 98 10/19/20 12:08 79 97 10/19/20 12:03 70 97 10/19/20 11:58 82 97 10/19/20 11:53 75 97 10/19/20 11:48 72 98 10/19/20 11:43 68 98 10/19/20 11:38 81 100 10/19/20 11:33 83 100 10/19/20 11:28 76 100 10/19/20 11:23 73 99 10/19/20 11:18 75 100 10/19/20 11:13 76 100 10/19/20 11:08 75 99 10/19/20 11:03 83 99 10/19/20 10:46 75 100 10/19/20 10:41 68 98 10/19/20 10:36 74 99 10/19/20 10:31 66 98 10/19/20 10:26 69 98 10/19/20 10:21 98.4 F 69 18 138/72 99 10/19/20 10:16 79 100 10/19/20 10:11 78 99 10/19/20 10:06 80 100 10/19/20 10:01 73 100 10/19/20 09:56 77 98 10/19/20 09:51 68 99 10/19/20 09:46 86 99 10/19/20 09:41 83 100 10/19/20 09:36 84 100 10/19/20 09:31 86 99 10/19/20 09:26 74 99 10/19/20 09:21 84 99 Pain Intensity Bilateral Abdomen: Pain Intensity: 8 Transfer of Care Handoff Completed per policy Notes Mental Status: alert / awake / arousable and participated in evaluation Nausea / Vomiting: adequately controlled Pain: adequately controlled Airway Patency, RR, SpO2: stable & adequate BP & HR: stable & adequate Hydration State: stable & adequate Neuraxial Anesthesia: was administered and sensory block is resolving Anesthetic Complications: no major complications apparent and Pt Satisfied with anesthetic care
[2020-10-20] MEDS: MEPERIDINE HCL 25 MG/ML CARP/VIAL IV PRN ×2 (08:06→10:19)
--- NOTE | 2020-10-20 08:35 | Operative Report (OR) ---
DATE OF PROCEDURE: 10/20/2020. INDICATIONS FOR SURGERY: This is a 30-year-old G1, P0 at 39 weeks who was scheduled for labor induct ion because of IUGR. The patient received Cervidil, was dilated to about 4-5 cm; however, on exam, f etus was found to be a hand presentation. Decision was therefore made to perform a section. PREOPERATIVE DIAGNOSES: 1. at term. 2. Intrauterine growth restriction. 3. Hand presentation of fetus. POSTOPERATIVE DIAGNOSES: 1. at term. 2. Intrauterine growth restriction. 3. Hand presentation of fetus. 4. Multiple fibroids on the uterus. PROCEDURE: Primary section. SURGEON: Trent Arce MD. FARM MECHANIC: Sandy Felix RN. FINDINGS: in cephalic presentation. Weight and Apgars in the pediatric record. Uterus has m ultiple fibroids. The adnexa and tubes otherwise appeared grossly normal. Rest of the abdominal exa m was otherwise unremarkable. COMPLICATIONS: None. PATHOLOGY: Cord blood, cord gas and placenta. INTRAOPERATIVE COMPLICATIONS: None. ANESTHESIA: Epidural. ATTENDING FOR ANESTHESIA: Dr. Tena. ESTIMATED BLOOD LOSS: 600 mL. INTRAVENOUS FLUIDS: 1600 mL. Urine is 100 mL of clear urine at the end of the procedure. DESCRIPTION OF PROCEDURE: The patient was taken to the operating room where she was prepped and drap ed in normal sterile fashion after timeout was called. Pfannenstiel incision was made with a scalpel and carried down to the fascia. Fascia was incised in the midline and extended laterally on both alvin es. Fascia was sharply dissected off the rectus abdominis muscle. Peritoneum was identified and ent ered sharply. Once inside the peritoneum, Mehdi retractor was placed for retraction. A low transve rse incision was made with a scalpel and extended laterally on both sides. Infant was delivered. Co rd was clamped and cut and handed over to the pediatric team. Details of the 's information wa s in the pediatric record. Placenta was manually removed. Uterus was exteriorized and cleared of all clots and debris. Uterus as stated above has multiple fibroids. Uterus was closed with Vicryl in 2 layers. There was good he mostasis. Uterus was returned into the abdominal cavity and copious amount of irrigation was used to irrigate the abdomen. Peritoneum was closed with plain suture. Fascia was closed in a running [facility] ion with Vicryl stitch. Subcutaneous space was approximated with plain suture and the skin was close d with constantin. All instruments were removed from the abdomen including retractors, sutures and needles and were acco unted for x2. The patient was sent to recovery in stable condition. Job ID: [id number]
[2020-10-20 09:47] LABS: Base Excess Cord Arterial Bld -2.6 mEq/L (-9-1.8); CO2 Cord Arterial Blood 48 mmHg (39.1-73.5); HCO3 Cord Arterial Blood 24 mmol/L (19.7-28.5); PO2 Cord Arterial Blood 23 mmHg (4.1-31.7); pH Cord Arterial Blood 7.32 (7.1-7.38)
[2020-10-20 09:48] LABS: Base Excess Cord Venous Blood -2.5 mEq/L (-7.7-1.9); Cord Venous Blood HCO3 23 mmol/L (18.4-26.8); Cord Venous Blood PCO2 43 mmHg (30.4-57.2); Cord Venous Blood PO2 25 mmHg (14.1-43.3); Cord Venous Blood pH 7.35 (7.20-7.44); O2 Saturation Cord Venous Bld < 60.0 % (<68); Oxygen Sat Cord Arterial Blood < 60.0 % (<60)
[2020-10-20] MEDS: OXYTOCIN 20 UNITS in LACTATED RINGER'S 1,000 ML IV SCH ×3 (09:59→23:34)
[2020-10-20] MEDS: FERROUS SULFATE 325 MG TAB PO SCH (10:09)
[2020-10-20] MEDS: SIMETHICONE 80 MG CHEW PO SCH ×4 (10:09→21:51)
[2020-10-20] MEDS: PRENATAL VITAMIN 1 TAB PO SCH (10:09)
[2020-10-20] MEDS: DOCUSATE SODIUM 100 MG CAP PO SCH ×2 (10:10→21:51)
[2020-10-20] MEDS ORDERED: LACTATED RINGER'S 500 ML IV ONE (11:15)
[2020-10-21] MEDS ORDERED: DC INTRASPINAL MORPHINE ONE (01:38)
[2020-10-21] MEDS ORDERED: diphenhydrAMINE Capsule 25 MG CAP PO PRN (01:38)
[2020-10-21] MEDS ORDERED: ONDANSETRON INJ 2 MG/ML 2 ML VIAL IV PRN (01:38)
[2020-10-21] MEDS ORDERED: PROMETHAZINE HCL 25 MG in SODIUM CHLORIDE 0.9% 50 ML IV PRN (01:38)
[2020-10-21] MEDS ORDERED: diphenhydrAMINE 50 MG/ML VIAL IV PRN (01:38)
[2020-10-21] MEDS: oxyCODONE/ACETAMINOPHEN 5mg/325mg TAB PO PRN ×5 (02:15→23:47)
--- NOTE | 2020-10-21 06:28 | Obstetrical Progress Note ---
Date of Service October 21, 2020 Assessment & Plan Admission and Anticipated Discharge Date Admission Date: October 19, 2020 Subjective Patient is seen and examined. She feels well, no complaints. Pain is under control with oral meds. Ambulating without dizziness Voiding without difficulty Tolerating regular diet with out N&V Flatus neg BM neg Bleeding is minimal No fever/ chills/ CP/ SOB/ N&V/ Leg pain Breast and bottle feeding without problems Vital Signs Temp Pulse Resp BP Pulse Ox 10/21/20 03:00 36.8 C 77 20 132/86 96 10/21/20 01:38 16 93 10/21/20 00:32 16 96 10/20/20 23:25 36.8 C 73 16 118/86 98 10/20/20 22:59 36.7 C 68 16 131/83 98 10/20/20 22:00 18 98 10/20/20 21:00 18 96 10/20/20 19:45 18 98 10/20/20 19:27 36.6 C 77 16 118/93 96 10/20/20 18:45 18 97 Intake & Output 10/20/20 10/20/20 10/21/20 14:59 22:59 06:59 Intake Total 1616.667 / 6199.500 4357.833 / 6199.500 225 / 6199.500 Output Total 800 / 2150 600 / 2150 750 / 2150 Balance 816.667 / 4049.500 3757.833 / 4049.500 -525 / 4049.500 Intake: IV 116.667 / 5575.667 1461.833 / 1999.500 125 / 1998.500 Oxytocin 20 units In Lactated 116.667 / 1140.974 1016.833 / 1999.500 125 / 1998.500 Ringer's 1,000 ml @ 150 mls/hr IV .[id number] [facility] Rx#:[id number] IV Perioperative 1500 / 1500 Oral 2600 / 2700 100 / 2700 Output: Urine 500 / 500 Estimated Blood Loss 600 / 600 Urine Amount (Catheter) 200 / 1050 600 / 1050 250 / 1050 Straight 200 / 1050 600 / 1050 250 / 1050 Lab Results 10/19/20 10/19/20 10/19/20 Range/Units 08:26 08:26 08:48 WBC (4.8-10.8) K/uL RBC (4.2-5.4) M/uL Hgb (12.0-16.0) g/dL Hct (37-47) % MCV (80-100) fL MCH (25-34) pg MCHC (32-36) g/dL RDW Std Deviation (36.4-46.3) fL RDW Coeff of Cande (11.5-14.5) % Plt Count (130-400) K/uL MPV (7.4-10.4) fL Cord ABG pH (7.1-7.38) Cord ABG pCO2 (39.1-73.5) mmHg Cord ABG pO2 (4.1-31.7) mmHg Cord ABG HCO3 (19.7-28.5) mmol/L Cord ABG Base Excess (-9-1.8) mEq/L Cord ABG O2 Sat (<60) % Cord VBG pH (7.20-7.44) Cord VBG pCO2 (30.4-57.2) mmHg Cord VBG pO2 (14.1-43.3) mmHg Cord VBG HCO3 (18.4-26.8) mmol/L Cord VBG Base Excess (-7.7-1.9) mEq/L Cord VBG O2 Sat (<68) % Barometric Pressure mm/Hg Blood Gas Comments POC Glucose 134 H (70-99) mg/dl COVID-19 [facility] SARS-[facility]-2, RNA, NAAT NEGATIVE (NEGATIVE) Blood Type Antibody Screen 10/19/20 10/19/20 10/20/20 Range/Units 09:59 09:59 06:28 WBC 10.29 (4.8-10.8) K/uL RBC 4.03 L (4.2-5.4) M/uL Hgb 10.5 L (12.0-16.0) g/dL Hct 33.6 L (37-47) % MCV 83.4 (80-100) fL MCH 26.1 (25-34) pg MCHC 31.3 L (32-36) g/dL RDW Std Deviation 48.2 H (36.4-46.3) fL RDW Coeff of Cande 15.8 H (11.5-14.5) % Plt Count 224 (130-400) K/uL MPV 9.9 (7.4-10.4) fL Cord ABG pH 7.32 (7.1-7.38) Cord ABG pCO2 48 (39.1-73.5) mmHg Cord ABG pO2 23 (4.1-31.7) mmHg Cord ABG HCO3 24 (19.7-28.5) mmol/L Cord ABG Base Excess -2.6 (-9-1.8) mEq/L Cord ABG O2 Sat < 60.0 (<60) % Cord VBG pH (7.20-7.44) Cord VBG pCO2 (30.4-57.2) mmHg Cord VBG pO2 (14.1-43.3) mmHg Cord VBG HCO3 (18.4-26.8) mmol/L Cord VBG Base Excess (-7.7-1.9) mEq/L Cord VBG O2 Sat (<68) % Barometric Pressure 726.6 mm/Hg Blood Gas Comments [facility] Glucose (70-99) mg/dl COVID-19 Eval Order SARS-CoV-2, RNA, NAAT (NEGATIVE) Blood Type B Positive Antibody Screen NEGATIVE 10/20/20 Range/Units 06:28 WBC (4.8-10.8) K/uL RBC (4.2-5.4) M/uL Hgb (12.0-16.0) g/dL Hct (37-47) % MCV (80-100) fL MCH (25-34) pg MCHC (32-36) g/dL RDW Std Deviation (36.4-46.3) fL RDW Coeff of Cande (11.5-14.5) % Plt Count (130-400) K/uL MPV (7.4-10.4) fL Cord ABG pH (7.1-7.38) Cord ABG pCO2 (39.1-73.5) mmHg Cord ABG pO2 (4.1-31.7) mmHg Cord ABG HCO3 (19.7-28.5) mmol/L Cord ABG Base Excess (-9-1.8) mEq/L Cord ABG O2 Sat (<60) % Cord VBG pH 7.35 (7.20-7.44) Cord VBG pCO2 43 (30.4-57.2) mmHg Cord VBG pO2 25 (14.1-43.3) mmHg Cord VBG HCO3 23 (18.4-26.8) mmol/L Cord VBG Base Excess -2.5 (-7.7-1.9) mEq/L Cord VBG O2 Sat < 60.0 (<68) % Barometric Pressure 726.6 mm/Hg Blood Gas Comments [facility] Glucose (70-99) mg/dl COVID-19 Eval Order SARS-CoV-2, RNA, NAAT (NEGATIVE) Blood Type Antibody Screen PE: General: Alert, orientedx3, NAD CVS: S1S2 RRR Lungs; CTAB Abd: soft, NT, ND, BS+, fundus firm, below Umbilicus Incision/ Dressing: Clean, dry, intact Perineum intact, Lochia rubra minimal Ext; NT, no edema AP: 30 yo s/p C Section, pod# 1 VSS Afebrile doing well CBC pending Continue routine postop care Encourage ambulation, PO intake Advance to regular diet All questions were answered Results & Data ([facility]) Vital Signs (Past 12 Hours) Vital Signs Temp Pulse Resp BP Pulse Ox 10/21/20 03:00 36.8 C 77 20 132/86 96 10/21/20 01:38 16 93 10/21/20 00:32 16 96 10/20/20 23:25 36.8 C 73 16 118/86 98 10/20/20 22:59 36.7 C 68 16 131/83 98 10/20/20 22:00 18 98 10/20/20 21:00 18 96 10/20/20 19:45 18 98 10/20/20 19:27 36.6 C 77 16 118/93 96 10/20/20 18:45 18 97
[2020-10-21 06:35] LABS: Basophils # (auto) 0.01 K/uL (0-0.2); Basophils % (auto) 0.1 %; Eosinophils # (auto) 0.08 K/uL (0-0.5); Eosinophils % (auto) 0.7 %; Hematocrit (blood only) 30.6 % (37-47); Hemoglobin 9.8 g/dL (12.0-16.0); Immature Granulocytes # (auto) 0.04 K/uL (0.00-0.02); Immature Granulocytes % (auto) 0.3 %; Lymphocytes # (auto) 1.05 K/uL (1.2-3.4); Lymphocytes % (auto) 9.1 %; Mean Corpuscular Hemoglobin 26.4 pg (25-34); Mean Corpuscular Volume 82.5 fL (80-100); Mean Platelet Volume 9.4 fL (7.4-10.4); Monocytes # (auto) 0.97 K/uL (0.11-0.59); Monocytes % (auto) 8.4 %; Neutrophils # (auto) 9.34 K/uL (1.4-6.5); Neutrophils % (auto) 81.4 %; Platelet Count 154 K/uL (130-400); RDW Coefficient of Variation 15.9 % (11.5-14.5); RDW Standard Deviation 48.3 fL (36.4-46.3); Red Blood Count 3.71 M/uL (4.2-5.4); White Blood Count 11.49 K/uL (4.8-10.8)
[2020-10-21] MEDS: SIMETHICONE 80 MG CHEW PO SCH ×4 (07:12→20:42)
[2020-10-21] MEDS: FERROUS SULFATE 325 MG TAB PO SCH (07:13)
[2020-10-21] MEDS: PRENATAL VITAMIN 1 TAB PO SCH (07:13)
[2020-10-21] MEDS: IBUPROFEN 600 MG TAB PO PRN ×4 (07:13→23:47)
[2020-10-21] MEDS: DOCUSATE SODIUM 100 MG CAP PO SCH ×2 (07:13→20:42)
[2020-10-21] MEDS ORDERED: bisacodyL 5 MG TABEC PO SCH (20:00)
[2020-10-22 06:23] LABS: Hematocrit (blood only) 31.8 % (37-47)
[2020-10-22] MEDS ORDERED: bisacodyL 10 MG SUPP PR PRN (07:39)
--- NOTE | 2020-10-22 07:39 | Obstetrical Progress Note ---
Date of Service October 22, 2020 Assessment & Plan (1) delivery delivered: c/sec day #2 pt doing well d/c home with instructions Subjective Ambulation: ambulating normally Voiding: no voiding problems Passing Gas:: Yes Diet Tolerance:: clear liquids Lochia:: Small Feeding Type:: breast feeding Review of Systems All systems reviewed & are unremarkable except as noted in HPI & below Physical Exam Constitutional WD/WN, vitals as above well developed and well nourished Eyes PERRL, conjunctivae normal, anicteric sclerae ENMT external ear and nose normal, oropharynx normal Neck trachea midline, no thyromegaly Respiratory normal respiratory effort, lungs clear to auscultation Cardiovascular RRR, no murmur, no edema Chest (Breasts) normal inspection/palpation of breasts Gastrointestinal (Abdomen) normal bowel sounds, soft, nontender, no hepatosplenomegaly Musculoskeletal no cyanosis or clubbing, extremities motor strength 5/5 Skin no rashes, warm and dry + incision (Clean,dry and intact) Neurologic patellar DTR's 2+ bilat, sensation intact Psychiatric A+Ox3, euthymic affect Genitourinary normal external appearance Lymphatic no cervical or axillary lymphadenopathy Results & Data ([facility]) Vital Signs (Past 12 Hours) Vital Signs Temp Pulse Resp BP 10/21/20 23:50 36.7 C 76 16 141/90 H
[2020-10-22] MEDS: DOCUSATE SODIUM 100 MG CAP PO SCH ×2 (08:00→20:13)
[2020-10-22] MEDS: FERROUS SULFATE 325 MG TAB PO SCH (08:00)
[2020-10-22] MEDS: IBUPROFEN 600 MG TAB PO PRN ×4 (08:00→20:18)
[2020-10-22] MEDS: PRENATAL VITAMIN 1 TAB PO SCH (08:00)
[2020-10-22] MEDS: SIMETHICONE 80 MG CHEW PO SCH ×4 (08:00→20:13)
[2020-10-22] MEDS: oxyCODONE/ACETAMINOPHEN 5mg/325mg TAB PO PRN ×3 (08:01→20:19)
--- NOTE | 2020-10-22 09:39 | Anesthesiology Progress Note ---
Date of Service October 22, 2020 Anesthesia Post Procedure Vital Signs Vital Signs: Temp Pulse Resp BP Pulse Ox 10/21/20 23:50 36.7 C 76 16 141/90 H 10/21/20 16:10 36.8 C 87 20 138/88 98 Pain Intensity Bilateral Abdomen: Pain Intensity: 3 Transfer of Care Handoff Completed per policy Notes Mental Status: alert / awake / arousable Patient Amnestic to Procedure: Yes Nausea / Vomiting: adequately controlled Pain: adequately controlled Airway Patency, RR, SpO2: stable & adequate BP & HR: stable & adequate Hydration State: stable & adequate Neuraxial Anesthesia: was administered and sensory block resolved Anesthetic Complications: no major complications apparent and Pt Satisfied with anesthetic care
--- NOTE | 2020-10-22 15:23 | Discharge Summary (DS) ---
DATE OF ADMISSION: 10/19/2020. DATE OF DISCHARGE: 10/22/2020. CHIEF COMPLAINT: This is a 30-year-old G1, P0 who was admitted on 10/19/2020 for induction of labor, status post IUGR. The patient's induction involved cervical ripening and went on to be 4 cm dilated . On subsequent exam hand presentation was palpated with bulging membrane. Decision was there fore made to proceed to section. The patient therefore had a section on 10/20/2020 at 0628 hours. Details of surgery is in the surgical note. Postop, patient did well and met all mt lestones. Today, on 10/22/2020, patient is being discharged home in stable condition. PAST MEDICAL HISTORY: The patient has history of anxiety and depression, obesity and polycystic ovar y syndrome. PAST SURGICAL HISTORY: None. SOCIAL HISTORY: The patient denies tobacco, drug or alcohol use. FAMILY HISTORY: Noncontributory. ALLERGIES: No known drug allergies. PHYSICAL EXAMINATION: VITAL SIGNS: Today, on 10/21/2020, patient's blood pressure is 141/90, pulse 76, respirations 16, te mperature 36.7. HEART: S1 and S2, regular rhythm and rate. LUNGS: Clear to auscultation bilaterally. ABDOMEN: Positive bowel sounds, nondistended. Incision is clean, dry and intact. CONDITION ON DISCHARGE: Stable. OPERATIONS: Primary section for mild presentation. DISCHARGE DIAGNOSIS: Primary section. PLAN ON DISCHARGE: The patient is discharged home with instructions regarding activity, diet, follow up appointment and medications. Job ID: [id number]
[2020-10-23] MEDS: oxyCODONE/ACETAMINOPHEN 5mg/325mg TAB PO PRN ×2 (03:04→08:35)
[2020-10-23] MEDS: IBUPROFEN 600 MG TAB PO PRN ×2 (03:04→08:34)
[2020-10-23] MEDS: DOCUSATE SODIUM 100 MG CAP PO SCH (08:34)
[2020-10-23] MEDS: PRENATAL VITAMIN 1 TAB PO SCH (08:35)
[2020-10-23] MEDS: SIMETHICONE 80 MG CHEW PO SCH (08:35)
--- NOTE | 2020-10-23 09:40 | Obstetrical Progress Note ---
Date of Service October 23, 2020 Subjective Ambulation: ambulating normally Passing Gas:: Yes Diet Tolerance:: regular diet Lochia:: Small Feeding Type:: breast feeding Current Pain Level(1-10): 0 plans for d/c today Physical Exam Constitutional WD/WN, vitals as above comfortable incision c/d/i abdomen soft and non-tender no edema neg Frieda's for d/c Results & Data ([facility]) Vital Signs (Past 12 Hours) Vital Signs Temp Pulse Resp BP Pulse Ox 10/23/20 08:40 36.7 C 76 20 143/92 H 98 10/23/20 01:11 137/86 10/22/20 23:00 36.8 C 76 18 145/91 H 98 Laboratory Results 10/19/20 10/19/20 10/19/20 08:26 08:26 08:48 WBC RBC Hgb Hct MCV MCH MCHC RDW Std Deviation RDW Coeff of Cande Plt Count MPV Immature Gran % (Auto) Neut % (Auto) Lymph % (Auto) Mitchell % (Auto) Eos % (Auto) Baso % (Auto) Neut # (Auto) Lymph # (Auto) Mitchell # (Auto) Eos # (Auto) Baso # (Auto) Immature Gran # (Auto) Cord ABG pH Cord ABG pCO2 Cord ABG pO2 Cord ABG HCO3 Cord ABG Base Excess Cord ABG O2 Sat Cord VBG pH Cord VBG pCO2 Cord VBG pO2 Cord VBG HCO3 Cord VBG Base Excess Cord VBG O2 Sat Barometric Pressure Blood Gas Comments POC Glucose 134 H COVID-19 Eval Order Covid19 [facility] SARS-CoV-2, RNA, NAAT NEGATIVE Blood Type Antibody Screen 10/19/20 10/19/20 10/20/20 09:59 09:59 06:28 WBC 10.29 RBC 4.03 L Hgb 10.5 L Hct 33.6 L MCV 83.4 MCH 26.1 MCHC 31.3 L RDW Std Deviation 48.2 H RDW Coeff of Cande 15.8 H Plt Count 224 MPV 9.9 Immature Gran % (Auto) Neut % (Auto) Lymph % (Auto) Mitchell % (Auto) Eos % (Auto) Baso % (Auto) Neut # (Auto) Lymph # (Auto) Mitchell # (Auto) Eos # (Auto) Baso # (Auto) Immature Gran # (Auto) Cord ABG pH 7.32 Cord ABG pCO2 48 Cord ABG pO2 23 Cord ABG HCO3 24 Cord ABG Base Excess -2.6 Cord ABG O2 Sat < 60.0 Cord VBG pH Cord VBG pCO2 Cord VBG pO2 Cord VBG HCO3 Cord VBG Base Excess Cord VBG O2 Sat Barometric Pressure 726.6 Blood Gas Comments [facility] Glucose COVID-19 Eval Order SARS-CoV-2, RNA, NAAT Blood Type B Positive Antibody Screen NEGATIVE 10/20/20 10/21/20 10/22/20 06:28 06:20 05:52 WBC 11.49 H RBC 3.71 L Hgb 9.8 L 10.0 L Hct 30.6 L 31.8 L MCV 82.5 MCH 26.4 MCHC 32.0 RDW Std Deviation 48.3 H RDW Coeff of Cande 15.9 H Plt Count 154 MPV 9.4 Immature Gran % (Auto) 0.3 Neut % (Auto) 81.4 Lymph % (Auto) 9.1 Mitchell % (Auto) 8.4 Eos % (Auto) 0.7 Baso % (Auto) 0.1 Neut # (Auto) 9.34 H Lymph # (Auto) 1.05 L Mitchell # (Auto) 0.97 H Eos # (Auto) 0.08 Baso # (Auto) 0.01 Immature Gran # (Auto) 0.04 H Cord ABG pH Cord ABG pCO2 Cord ABG pO2 Cord ABG HCO3 Cord ABG Base Excess Cord ABG O2 Sat Cord VBG pH 7.35 Cord VBG pCO2 43 Cord VBG pO2 25 Cord VBG HCO3 23 Cord VBG Base Excess -2.5 Cord VBG O2 Sat < 60.0 Barometric Pressure 726.6 Blood Gas Comments [facility] Glucose COVID-19 Eval Order SARS-CoV-2, RNA, NAAT Blood Type Antibody Screen
== END 2020-10-23 11:45 | disposition home or self-care (01) | DRG 788 ==
LOC: 4S1 07:27 → 4S2 10-20 10:10